=== PATIENT | female | born 1945 | race Caucasian/White ===

== ENCOUNTER 2022-12-18 11:31 | Emergency (ER) | payer BC, OTHER ==
[~2022-12-18] VITALS: Ht 160 cm; Wt 85.7 kg
[2022-12-18] MEDS ORDERED: LOSA50TA28 PO (12:01)
[2022-12-18] MEDS ORDERED: LOSA25TA18 PO (12:01)
[2022-12-18] MEDS ORDERED: PANT40TA45 PO (12:01)
[2022-12-18 12:02] VITALS: BP_SYST 136; PULSE 98; RESP 20; TEMP 98.6; O2SAT 96
[2022-12-18] MEDS ORDERED: TRAM50TA2 PO (12:53)
[2022-12-18] MEDS ORDERED: AUG875 PO (12:53)
[2022-12-18] MEDS ORDERED: cefTRIAXone 1 GM VIAL IM ONE (13:00)
[2022-12-18 13:35] VITALS: BP_SYST 136; PULSE 98; RESP 20; TEMP 98.6; O2SAT 96
== END 2022-12-18 13:35 | disposition home or self-care (01) ==
LOC: SED 11:31
DX: K04.7 Periapical abscess without sinus (principal); R22.0 Localized swelling, mass and lump, head; K21.9 Gastro-esophageal reflux disease without esophagitis; I10 Essential (primary) hypertension; E78.5 Hyperlipidemia, unspecified; Z79.899 Other long term (current) drug therapy
CPT/HCPCS: 99283; 96372; J0696